=== PATIENT | male | born 1995 | race Caucasian/White ===

== ENCOUNTER 2023-07-27 20:13 | Emergency (ER) | payer OTHER, BC ==
[2023-07-27] MEDS ORDERED: Bacitracin 1 PK ONE (21:24)
[2023-07-27] MEDS ORDERED: Boostrix 0.5 ML (Tdap) VIAL (>/=7 yrs of age) ONE (21:24)
[2023-07-27] MEDS ORDERED: Ibuprofen 600 MG TAB ONE (21:46)
== END 2023-07-27 21:53 | disposition home or self-care (01) ==
LOC: MADERS 20:13
DX: S90.31XA Contusion of right foot, initial encounter (principal); W54.1XXA Struck by dog, initial encounter; Y93.89 Activity, other specified; Z23 Encounter for immunization
CPT/HCPCS: 90471; 90715

== ENCOUNTER 2025-04-29 10:29 | Emergency (ER) | payer BC ==
[2025-04-29 11:30] LABS: #Basophils 0.1 thou/uL (0.0-0.2); #Eosinophils 0.2 thou/uL (0.0-0.7); #Lymphocytes 2.0 thou/uL (1.20-3.40); #Monocytes 0.7 thou/uL (0.11-0.59); #Neutrophils 6.1 thou/uL (1.40-6.50); %Basophils 1.0 % (0.0-1.0); %Eosinophils 2.0 % (0.0-10.0); %Lymphocytes 22.1 % (21.0-51.0); %Monocytes 7.3 % (0.0-10.0); %Neutrophils 67.6 % (42.0-75.0); Hematocrit 38.8 % (42.0-52.0); Hemoglobin 11.6 g/dL (14.0-18.0); Mean Corpuscular Hemoglobin 23.4 pg (27.0-31.0); Mean Corpuscular Volume 78.1 fl (78.0-98.0); Platelet Count 294 10x3/uL (130-400); Red Blood Cell (RBC) Count 4.97 mill/uL (4.70-6.10); White Blood Cell (WBC) Count 9.0 10x3/uL (4.8-10.8)
[2025-04-29 11:44] LABS: ALT (SGPT) 20 U/L (Less than 45); AST (SGOT) 26 U/L (11-34); Albumin 4.6 g/dL (3.1-4.5); Alkaline Phosphatase 68 U/L (40-110); Anion Gap 16 mmol/L (10-20); BUN (Urea Nitrogen) 17 mg/dL (8.9-20.6); Bilirubin, Total 0.8 mg/dL (0.3-1.2); Calc. Creatinine Clearance 0 mL/min (70-130); Calcium 9.5 mg/dL (7.8-10.44); Carbon Dioxide 24 mmol/L (22-29); Chloride 109 mmol/L (98-107); Globulin 3.3 g/dL (2.4-3.5); Glucose 115 mg/dL (70-105); Potassium 3.8 mmol/L (3.5-5.1); Sodium 145 mmol/L (136-145)
== END 2025-04-29 12:24 | disposition home or self-care (01) ==
LOC: MADERS 10:29
DX: R42 Dizziness and giddiness (principal); R29.700 NIHSS score 0; Z55.6 Problems related to health literacy
CPT/HCPCS: 80053; 85025; 93005; 99284; Q0162